=== PATIENT | female | born 1980 | race Caucasian/White ===

== ENCOUNTER 2025-05-16 06:17 | Day surgery (SDC) | payer OTHER ==
[2025-05-16] VITALS (16 sets, daily range): BP systolic 114–166; BP diastolic 75–95
[~2025-05-16] VITALS: Ht 172.7 cm; Wt 84.7 kg
[~2025-05-16 06:17] MED LIST: AMIT10 PO; ATOR20 PO; BUPR150ER PO; CELE100 PO; CODBUTACEC PO; CeFAZolin Sodium 2,000 MG in NS 100 ML IV SCH; DEXL60CA3 PO; Flomax0.4 MG PO; IBUP800 PO; LANS15EC PO; NITR100CA PO; ONDA4ODT MM; OXYACE5T PO; Percocet 5-3251 EACH PO; Prilosec Otc20 MG PO; Pristiq100 MG PO; UBRELVY100 MG PO
[2025-05-16] MEDS ORDERED: Tranexamic Acid 100 ML IV SCH (06:20)
[2025-05-16] MEDS ORDERED: CeFAZolin Sodium 2,000 MG VIAL ONE (06:50)
--- NOTE | 2025-05-16 07:00 | NUR ---
History, Chart, Medications and Allergies reviewed before start of procedure. Lungs clear T/O to Auscultation. Patient confirms NPO status and agrees with scheduled surgery. Pre-Op teaching done. Pt verbalizes understanding. Patient reports completing Chlorhexadine shower X2 prior to admission to hospital.
[2025-05-16] MEDS ORDERED: Midazolam HCl 1MG / ML 2ML Vial ONE (07:11)
[2025-05-16] MEDS ORDERED: FentaNYL Citrate 50 MCG/ML 2 ML Injection ONE ×2 (07:11→09:48)
[2025-05-16] MEDS ORDERED: Dexamethasone Sod Phos 10 MG/ML 1ML VIAL ONE (07:12)
[2025-05-16] MEDS ORDERED: Rocuronium Bromide 10 MG/ML 5ML Injection IV ONE (07:12)
[2025-05-16] MEDS ORDERED: Bupivacaine HCl 0.25% 30 ML Injection ONE (07:12)
--- NOTE | 2025-05-16 07:16 | NUR ---
PT FITTED WITH SHOULDER SLING PRIOR TO GOING BACK TO OR.
[2025-05-16] MEDS ORDERED: EPINEPhrine HCl 1 MG / ML 30ML Vial ONE (07:20)
[2025-05-16] MEDS ORDERED: Bupivacaine 0.25% Epi 1:200000 30 ML Vial ONE (07:21)
--- NOTE | 2025-05-16 07:35 | NUR ---
07 - TIMEOUT FOR INTERSCALING BLOCK TO RIGHT SHOULDER PT ON BIOX AND O2 PROIR TO PROCEDURE STARTING. 728 - NEEDLE IN 31 - NEEDLE OUT PT TOLERATED PROCEDURE WELL. PT SPOUSE AT BEDSIDE TO OBSERVE - TOLERATED WELL.
[2025-05-16] MEDS ORDERED: ePHEDrine Sulfate 50 MG/ML 1ML Injection ONE (07:55)
[2025-05-16] MEDS ORDERED: Ondansetron HCl 2 MG / ML 2ML Vial IV PRN (08:05)
[2025-05-16] MEDS ORDERED: FentaNYL Citrate 50 MCG/ML 2 ML Injection IV PRN (08:05)
[2025-05-16] MEDS ORDERED: HYDROmorphone HCl/Pf 1MG SYR IV PRN ×2 (08:05→08:10)
[2025-05-16] MEDS ORDERED: Albuterol 2.5 MG/3 ML VIAL INH PRN (08:05)
[2025-05-16] MEDS ORDERED: Phenylephrine HCl 100 MCG/ML-NS 10MLSYR (1MG/10ML) ONE (08:12)
[2025-05-16] MEDS ORDERED: Phenylephrine HCl 100 MCG/ML-NS 10MLSYR (1MG/10ML) IV SCH (08:20)
[2025-05-16] MEDS ORDERED: Ondansetron HCl 2 MG / ML 2ML Vial ONE ×2 (09:16→09:49)
[2025-05-16] MEDS ORDERED: Sugammadex Sodium 200 MG/2ML SDV (100 MG/ML) ONE (09:26)
--- NOTE | 2025-05-16 11:44 | NUR ---
TO STEP POST LEFT SHOULDER ARTHROSCOPY. DRESSING CDI, IMMOBILIZER IN PLACE. INTRA SCALINE BLOCK WITH GOOD EFFECT, DENIES PAIN AT THIS TIME. REPORTS MODERATE NAUSEA, SCOPALOMINE PATCH PLACED TO BEHIND RIGHT EAR. PT INSTRUCTED TO REMOVED IN 72 HOURS AND MONITOR FOR INCREASED DIZZINESS. DECLINES PO PAIN MEDS AT THIS TIME. VERBALIZED UNDERSTANDING OF DC INSTRUCTIONS. DC'D IV INTACT. DRESSED AT BEDSIDE WITH STEADY GAIT WITH ASSIST. DC'D VIA WC TO PRIVATE CAR WITH PUTTY GLAZER.
== END 2025-05-16 11:30 | disposition home or self-care (01) ==
LOC: ORSCMMR 06:17 → ORD 07:30 → ORSCMMR 07:30
PROVIDERS: Orthopaedic Surgery Sports Medicine
PROC: 0RQK4ZZ Repair Left Shoulder Joint, Percutaneous Endoscopic Approach (ICD-10-PCS; principal; 2025-05-16 07:30)
DX: S43.432A Superior glenoid labrum lesion of left shoulder, initial encounter (principal); M25.512 Pain in left shoulder; I10 Essential (primary) hypertension; E78.5 Hyperlipidemia, unspecified; K21.9 Gastro-esophageal reflux disease without esophagitis; Z86.73 Personal history of transient ischemic attack (TIA), and cerebral infarction without residual deficits; F32.A Depression, unspecified; Z79.899 Other long term (current) drug therapy
CPT/HCPCS: A9270; C1713; J0165; J0690; J1100; J1790; J2250; J2371; J2405; J2704; J3010; J7120